=== PATIENT | male | born 2000 | race Two or more races ===

== ENCOUNTER 2021-05-15 20:50 | Emergency (ER) | payer SELFPAY ==
[~2021-05-15] VITALS: Ht 165.1 cm; Wt 66.5 kg
[2021-05-15 22:17] LABS: BASO % 0 % (0-3); EOS # 0.4 x10^3/uL (0.0-0.7); EOS % 4 % (0-3); HEMATOCRIT 48.6 % (39.0-53.0); HEMOGLOBIN 16.7 g/dL (13.0-17.5); LYMPH # 0.5 x10^3/uL (1.0-4.8); LYMPH % 5 % (24-48); MEAN CORPUSCULAR HEMOGLOBIN 30 pg (25-35); MEAN CORPUSCULAR HGB CONC 35 g/dL (31-37); MEAN CORPUSCULAR VOLUME 88 fL (79-100); MONO # 1.3 x10^3/uL (0.0-1.1); MONO % 13 % (0-9); NEUT # 7.7 x10^3/uL (1.8-7.7); NEUT % 78 % (31-73); PLATELET COUNT 232 x10^3/uL (140-400); RED BLOOD COUNT 5.51 x10^6/uL (4.30-5.70); RED CELL DISTRIBUTION WIDTH 12.6 % (11.5-14.5)
[2021-05-15] MEDS ORDERED: CONTRAST GIVEN. MC PRN (22:30)
[2021-05-15] MEDS ORDERED: ACETAMINOPHEN 500 MG TABLET PO ONE (22:30)
[2021-05-15] MEDS ORDERED: KETOROLAC 15 MG/ML VIAL. IVP ONE (22:30)
[2021-05-15] MEDS ORDERED: IV NORMAL SALINE 1000ML BAG 1,000 ML IV ONE (22:30)
[2021-05-15 22:31] LABS: CALCIUM 8.9 mg/dL (8.5-10.1); CREATININE 1.1 mg/dL (0.7-1.3); GFR 83.7; POTASSIUM 3.6 mmol/L (3.5-5.1)
[2021-05-15 22:36] LABS: ALBUMIN 4.3 g/dL (3.4-5.0); ALBUMIN/GLOBULIN RATIO 1.2 (1.0-1.7); TOTAL BILIRUBIN 0.5 mg/dL (0.2-1.0); TOTAL PROTEIN 7.9 g/dL (6.4-8.2)
[2021-05-15] MEDS ORDERED: IOHEXOL 300 MG/ML 100ML VIAL. IV ONE (23:00)
--- NOTE | 2021-05-15 23:07 | PHYS DOC ---
Past Medical History Past Surgical History: Cholecystectomy Adult General Chief Complaint Chief Complaint: ABDOMINAL PAIN HPI HPI The patient is a 20-year-old male who is otherwise healthy. He reports a surgical history of cholecystectomy completed about a year ago at [facility]. Mr. Sheridan presents for evaluation of generalized abdominal discomfort, worse on the right side, in association with fever and gradual onset bilateral frontal headache, all with onset this morning upon awakening from sleep. Abdominal discomfort is an 8 out of 10 in severity. It waxes and wanes but never truly goes away. No associated vomiting, focal or lateralizing weakness, numbness or tingling, neck stiffness/pain/meningismus, vision changes, upper respiratory congestion/rhinorrhea, cough, sore throat, shortness of breath or chest pain of any kind, flank pain, midline back pain, dysuria, hematuria, polyuria or oliguria, testicular or scrotal or inguinal or perineal pain, changes in bowel habits, pain or swelling to arms or legs. Patient is alert, pleasantly and appropriately interactive and in absolutely no acute distress with appropriate vital signs aside from fever and slight tac hycardia. He is ambulatory to his emergency department room with a narrow, steady gait. Review of Systems Review of Systems A 12 point review of systems was completed and was negative except where noted in HPI above. Current Medications Current Medications Current Medications Medications (Trade) Dose Ordered Sig/Lazaro Start Time Stop Time Status Last Admin Dose Admin Acetaminophen (Tylenol) 1,000 mg 1X ONCE 05/15/21 22:30 05/15/21 22:31 DC 05/15/21 23:28 1,000 MG Info (CONTRAST GIVEN -- Rx MONITORING) 1 each PRN DAILY PRN 05/15/21 22:30 05/17/21 22:29 Iohexol (Omnipaque 300 Mg/ml) 75 ml 1X ONCE 05/15/21 23:00 05/15/21 23:01 DC 05/15/21 22:54 75 ML Ketorolac Tromethamine (Toradol 15mg Vial) 15 mg 1X ONCE 05/15/21 22:30 05/15/21 22:31 DC 05/15/21 23:27 15 MG Sodium Chloride 1,000 ml @ 1,000 mls/hr 1X ONCE 05/15/21 22:30 05/15/21 23:29 DC 05/15/21 23:28 1,000 MLS/HR Allergies Allergies Allergies Coded Allergies Type Severity Reaction Last Updated Verified No Known Drug Allergies 05/15/21 No Physical Exam Physical Exam 20-year-old male appearing nontoxic and in no acute distress. Head is normocephalic and atraumatic. Neck is supple and nontender. Patient ranges his neck fully in all dimensions without discomfort or distress and there is no stiffness/rigidity/meningismus seen. Kernig's and Brudzinski's are negative. Oropharynx is moist. Lungs are clear to auscultation at all stations. There is a normal S1 and S2 without rubs or gallops and capillary refill is appropriate, less than 2 seconds globally. Abdomen is soft and nondistended with mild generalized abdominal tenderness to palpation without rebound or guarding. Discomfort to palpation seems a little worse on the right side than on the left. Skin is warm and dry without cyanosis, clubbing or edema. Psychiatrically, the patient demonstrates appropriate mood and affect and is alert. Neurologically, cranial nerves II through XII are intact and there are no lateralizing deficits seen. Speech is normal. Language is normal. Coordination is normal. There is no dysmetria [id number] or hbzk-[id number] bilaterally. Strength is 5 out of 5 in all joints of bilateral upper and lower extremities. Sensation is intact light touch in bilateral upper and lower extremities. Patient ambulates with a narrow, steady, non-ataxic gait here in the emergency department and is alert and oriented x4. Current Patient Data Vital Signs Vital Signs Date Time Temp Pulse Resp B/P (MAP) Pulse Ox O2 Delivery O2 Flow Rate FiO2 05/16/21 01:41 98.3 81 16 120/65 (83) 98 Room Air 98.3 Lab Values Laboratory Tests Test 05/15/21 22:05 05/15/21 23:27 05/16/21 00:50 White Blood Count 10.0 x10^3/uL (4.0-11.0) Red Blood Count 5.51 x10^6/uL (4.30-5.70) Hemoglobin 16.7 g/dL (13.0-17.5) Hematocrit 48.6 % (39.0-53.0) Mean Corpuscular Volume 88 fL (79-100) Mean Corpuscular Hemoglobin 30 pg (25-35) Mean Corpuscular Hemoglobin Concent 35 g/dL (31-37) Red Cell Distribution Width 12.6 % (11.5-14.5) Platelet Count 232 x10^3/uL (140-400) Neutrophils (%) (Auto) 78 % (31-73) H Lymphocytes (%) (Auto) 5 % (24-48) L Monocytes (%) (Auto) 13 % (0-9) H Eosinophils (%) (Auto) 4 % (0-3) H Basophils (%) (Auto) 0 % (0-3) Neutrophils # (Auto) 7.7 x10^3/uL (1.8-7.7) Lymphocytes # (Auto) 0.5 x10^3/uL (1.0-4.8) L Monocytes # (Auto) 1.3 x10^3/uL (0.0-1.1) H Eosinophils # (Auto) 0.4 x10^3/uL (0.0-0.7) Basophils # (Auto) 0.0 x10^3/uL (0.0-0.2) Sodium Level 137 mmol/L (136-145) Potassium Level 3.6 mmol/L (3.5-5.1) Chloride Level 100 mmol/L (98-107) Carbon Dioxide Level 29 mmol/L (21-32) Anion Gap 8 (6-14) Blood Urea Nitrogen 11 mg/dL (8-26) Creatinine 1.1 mg/dL (0.7-1.3) Estimated GFR (Cockcroft-Gault) 83.7 BUN/Creatinine Ratio 10 (6-20) Glucose Level 89 mg/dL (70-99) Lactic Acid Level 1.0 mmol/L (0.4-2.0) Calcium Level 8.9 mg/dL (8.5-10.1) Total Bilirubin 0.5 mg/dL (0.2-1.0) Aspartate Amino Transferase (AST) 23 U/L (15-37) Alanine Aminotransferase (ALT) 42 U/L (16-63) Alkaline Phosphatase 107 U/L (46-116) Total Protein 7.9 g/dL (6.4-8.2) Albumin 4.3 g/dL (3.4-5.0) Albumin/Globulin Ratio 1.2 (1.0-1.7) Lipase 57 U/L (73-393) L Procalcitonin < 0.10 ng/mL (0.00-0.10) Influenza Type A Antigen Negative (NEGATIVE) Influenza Type B Antigen Negative (NEGATIVE) SARS-CoV-2 Antigen (Rapid) Negative (NEGATIVE) Urine Collection Type Unknown Urine Color (Auto) Light yellow Urine Turbidity Clear Urine pH (Auto) 6.0 (<5.0-8.0) Urine Specific Moore 1.042 (1.000-1.030) Urine Protein (Auto) Negative mg/dL (Negative) Urine Glucose (Auto)(UA) Negative mg/dL (Negative) Urine Ketones (Auto) Negative mg/dL (Negative) Urine Blood (Auto) Negative (Negative) Urine Nitrite Negative (Negative) Urine Bilirubin (Auto) Negative (Negative) Urine Urobilinogen (Auto) Normal mg/dL (Normal) Urine Leukocyte Esterase (Auto) Negative (Negative) Urine RBC 0 /HPF (0-2) Urine WBC 0 /HPF (0-4) Urine Squamous Epithelial Cells None /LPF Urine Bacteria 0 /HPF (0-FEW) Laboratory Tests 05/15/21 22:05 Laboratory Tests 05/15/21 22:05 EKG EKG [] Radiology/Procedures Radiology/Procedures []EXAMINATION: CT ABDOMEN+PELVIS W CLINICAL HISTORY: Generalized abdominal pain, worst upper, +febrile. Onset today. TECHNIQUE: CT of the abdomen and pelvis was performed using standard technique, scanning from just above the dome of the diaphragm to the symphysis pubis following administration of intravenous contrast. CT Dose Reduction Employed: One or more of the following individualized dose reduction techniques were utilized for this examination: 1. Automated exposure control 2. Adjustment of the mA and/or kV according to patient size 3. Use of iterative reconstruction technique. COMPARISON: None FINDINGS: Visualized heart and lungs unremarkable. Liver, gallbladder, pancreas, spleen, and adrenal glands unremarkable. Nonvisualized right kidney, possibly aplastic. Left kidney unremarkable. Minimally filled urinary bladder suboptimally evaluated. No bowel dilation or definite wall thickening. Appendectomy. No abdominal aortic or iliac artery aneurysm. No evidence of acute osseous abnormality. Possible tiny limbus vertebra along the L5 superior endplate. IMPRESSION: No evidence of acute abdominopelvic abnormality. Nonvisualized right kidney, possibly aplastic. Electronically signed by: Hayden Ramos DO (05/15/2021 11:07 PM) [facility] DICTATED and SIGNED BY: HAYDEN RAMOS DO DATE: 05/15/212300 EXAMINATION: RIGHT UPPER QUADRANT ULTRASOUND CLINICAL HISTORY: RUQ abd pain, fever. TECHNIQUE: Sonography of the right upper quadrant was performed. COMPARISON: CT abdomen/pelvis same day FINDINGS: Pancreas: Not visualized secondary to prominent overlying bowel gas. Liver: - Echotexture: Normal, homogeneous. - Echogenicity: Normal - Surface contour: Smooth - Lesions: None. Biliary: No intrahepatic biliary duct dilation. - CBD: 3 mm. - Gallbladder: Normal caliber - Contents: No cholelithiasis - Wall: Normal - Other: No pericholecystic fluid. Right Kidney: Not visualized, possibly aplastic. Ascites: None. Aorta/IVC: Partially visualized aorta and IVC unremarkable. IMPRESSION: Nonvisualized pancreas and right kidney, otherwise unremarkable exam. Electronically signed by: Hayden Ramos DO (05/16/2021 1:02 AM) [facility] DICTATED and SIGNED BY: HAYDEN RAMOS DO DATE: 05/16/21100 Course & Med Decision Making Course & Med Decision Making Well-appearing 20-year-old male presenting for abdominal pain, headache and fever. Will place IV and give IV fluids and medication for discomfort and fever as noted and will check labs, cultures, urine and a CT scan of the abdomen pelvis with contrast. We will then reevaluate. 0158: Patient resting comfortably in no acute distress on serial reassessments. Vital signs have normalized. Patient reports his presenting abdominal discomfort is gone, as is his headache. He feels very well. Labs and imaging entirely unremarkable aside from the observation that the patient has a gallbladder and is not status post cholecystectomy as he told us he was. He does also appear to have a solitary kidney. No evidence of an emergency condition has been identified. In view of very reassuring work-up in this well- appearing young man, will discharge home with an ibuprofen course to follow-up closely with primary care. Patient understands that if he feels worse instead of better or develops other new symptoms of concern that he should return to the emergency department right away for reevaluation. All questions are answered. Dragon Disclaimer Dragon Disclaimer This electronic medical record was generated, in whole or in part, using a voice recognition dictation system. Departure Departure Impression: Primary Impression: Generalized abdominal pain Additional Impression: Fever Disposition: HOME / SELF CARE / HOMELESS Condition: STABLE Patient Instructions: Abdominal Pain (Nonspecific), Fever of Unknown Origin Additional Instructions: Follow-up very closely with your primary care doctor in the office in the next 2 to 4 days for a reevaluation of your symptoms and a discussion of next best steps in care. Drink plenty of fluids and get plenty of rest. Take a 600 mg ibuprofen pill every 6 hours as needed for discomfort and/or fever. Return to the emergency department right away as we discussed for worsening symptoms of any kind or with any other new symptoms of concern. Scripts Ibuprofen (IBUPROFEN) 600 Mg Tablet 600 MG PO PRN Q6HRS PRN for PAIN, #20 TAB take with food or milk Prov: ROS HOLLINS MD 05/16/21 Problem Qualifiers Additional Impression: Fever Fever type: unspecified Qualified Codes: R50.9 - Fever, unspecified ROS HOLLINS MD May 15, 2021 23:07
--- NOTE | 2021-05-15 23:09 | RAD ---
EXAMINATION: CT ABDOMEN+PELVIS W CLINICAL HISTORY: Generalized abdominal pain, worst upper, +febrile. Onset today. TECHNIQUE: CT of the abdomen and pelvis was performed using standard technique, scanning from just ab ove the dome of the diaphragm to the symphysis pubis following administration of intravenous contrast . CT Dose Reduction Employed: One or more of the following individualized dose reduction techniques wer e utilized for this examination: 1. Automated exposure control 2. Adjustment of the mA and/or kV ac cording to patient size 3. Use of iterative reconstruction technique. COMPARISON: None FINDINGS: Visualized heart and lungs unremarkable. Liver, gallbladder, pancreas, spleen, and adrenal glands unremarkable. Nonvisualized right kidney, possibly aplastic. Left kidney unremarkable. Minimally filled urinary bladder suboptimally evaluated. No bowel dilation or definite wall thickening. Appendectomy. No abdominal aortic or iliac artery aneurysm. No evidence of acute osseous abnormality. Possible tiny limbus vertebra along the L5 superior endplat e. IMPRESSION: No evidence of acute abdominopelvic abnormality. Nonvisualized right kidney, possibly aplastic. Electronically signed by: Hayden Esparza DO (05/15/2021 11:07 PM) TARI
[2021-05-15 23:54] LABS: INFLUENZA A PATIENT NEGATIVE (NEGATIVE); INFLUENZA B PATIENT NEGATIVE (NEGATIVE)
--- NOTE | 2021-05-16 01:05 | RAD ---
EXAMINATION: RIGHT UPPER QUADRANT ULTRASOUND CLINICAL HISTORY: RUQ abd pain, fever. TECHNIQUE: Sonography of the right upper quadrant was performed. COMPARISON: CT abdomen/pelvis same day FINDINGS: Pancreas: Not visualized secondary to prominent overlying bowel gas. Liver: - Echotexture: Normal, homogeneous. - Echogenicity: Normal - Surface contour: Smooth - Lesions: None. Biliary: No intrahepatic biliary duct dilation. - CBD: 3 mm. - Gallbladder: Normal caliber - Contents: No cholelithiasis - Wall: Normal - Other: No pericholecystic fluid. Right Kidney: Not visualized, possibly aplastic. Ascites: None. Aorta/IVC: Partially visualized aorta and IVC unremarkable. IMPRESSION: Nonvisualized pancreas and right kidney, otherwise unremarkable exam. Electronically signed by: Hayden Esparza DO (05/16/2021 1:02 AM) [facility]
[2021-05-16 01:12] LABS: BACTERIA,URINE 0 /HPF (0-FEW); RBC,URINE 0 /HPF (0-2); WBC,URINE 0 /HPF (0-4)
[2021-05-16 01:54] VITALS: BP 123/65
[2021-05-16] MEDS ORDERED: IBUP-1007 PO (02:04)
== END 2021-05-16 02:04 | disposition home or self-care (01) ==
LOC: ER 20:50
DX: R10.84 Generalized abdominal pain (principal); R50.9 Fever, unspecified; R51.9 Headache, unspecified; Z20.822 Contact with and (suspected) exposure to COVID-19; Z90.49 Acquired absence of other specified parts of digestive tract
CPT/HCPCS: 36415; 74177; 76705; 80053; 81001; 83605; 83690; 84145; 85025; 87040; 87428; 96361; 96374; 99285; J1885; J7030; Q9967